=== PATIENT | male | born 1955 | race Caucasian/White ===

== ENCOUNTER → 2019-11-01 | Outpatient (CLI) | payer MEDICARE, OTHER ==
--- NOTE | 2019-11-01 13:37 | RAD ---
Bilateral lower extremity arterial duplex Doppler ultrasound and ankle-brachial index HISTORY: Nonhealing wound left distal medial ankle lower leg FINDINGS: Right ankle brachial index is 1.13 based on brachial pressure of 145 mmHg and ankle pressure of 187 mmHg. Left resting ankle brachial index is 1.14 based on brachial pressure of 148 mmHg and ankle pressure of 169 mmHg. Left leg demonstrates minimal flat plaquing with normal waveform and velocities without significant stenosis or occlusion of the left common femoral artery, profunda femoral artery, superficial femoral artery, popliteal artery, posterior tibial artery, peroneal artery, anterior tibial artery and dorsalis pedis artery. IMPRESSION: Normal resting ankle-brachial indices. No evidence of left leg arterial significant stenosis or occlusion. Electronically signed by: Tho Hernandez MD (11/01/2019 1:34 PM) [id number]
== END ==
LOC: US 11:49
PROVIDERS: ATTEND Emergency Medicine Undersea and Hyperbaric Medicine
DX: S91.002A Unspecified open wound, left ankle, initial encounter (principal); X58.XXXA Exposure to other specified factors, initial encounter; Y93.89 Activity, other specified; Y92.89 Other specified places as the place of occurrence of the external cause; Y99.8 Other external cause status
CPT/HCPCS: 93922; 93926